=== PATIENT | female | born 2000 | race Caucasian/White ===

== ENCOUNTER 2019-03-19 09:26 | Emergency (ER) | payer BC ==
--- NOTE | 2019-03-19 10:02 | ED ---
Lower Extremity - HPI Summary HPI Summary: 18 year old female presents to the ED with a chief complaint of left knee pain, secondary to playing tennis 2 days ago. Patient does not remember a specific event that triggered the pain. She is able to bear weight and has been walking on this leg. No FHx. No PMHx. - History of Current Complaint Chief Complaint: EDExtremityLower Stated Complaint: LEFT KNEE INJURY Time Seen by Provider: 03/19/19 09:28 Hx Obtained From: Patient Mechanism Of Injury: Unknown - Patient was playing tennis. Unsure of YEIMI Onset of Pain: Post Accident Onset/Duration: Days Severity Initially: Moderate Severity Currently: Moderate Pain Intensity: 6 Pain Scale Used: 0-10 Numeric Timing: Constant, Lasting Days Location: Is Discrete @ - Left knee Character Of Pain: Aching Associated Signs And Symptoms: Positive: Knee Pain Aggravating Factor(s): Standing, Ambulation, Movement Able to Bear Weight: Yes - Allergies/Home Medications Allergies/Adverse Reactions: Allergies Allergy/AdvReac Type Severity Reaction Status Date / Time No Known Allergies Allergy Verified 03/19/19 09:32 Home Medications: Home Medications Norethindr/Eth Estradiol(Nf) [Lo Loestrin Fe (NF)] 1 tab PO DAILY 03/19/19 [ History Confirmed 03/19/19] PMH/Surg Hx/FS Hx/Imm Hx Previously Healthy: Yes Sensory History: Denies: Hx Legally Blind, Hx Deafness - Surgical History Surgical History: None Infectious Disease History: No Infectious Disease History: Denies: Traveled Outside the [place] in Last 30 Days - Family History Known Family History: Positive: None, Non-Contributory - Social History Alcohol Use: Occasionally Hx Substance Use: No Substance Use Type: Reports: None Hx Tobacco Use: No Review of Systems Negative: Fever Positive: Arthralgia - L knee All Other Systems Reviewed And Are Negative: Yes Physical Exam - Summary Physical Exam Summary: General: Well appearing, no distress HEENT: PERRL Cardiovascular: Skin is well perfused Pulmonary: No respiratory distress, no tachypnea Abdomen: Non-distended Skin: Warm, pink, dry MSK: LLE: no deformity effusions, soft tissue swelling or discoloration, no crepitus palpated, compartments soft and compressible SILT 2+ DP, brisk cap refill x 5 FROM of joints without pain Hip: no ttp, no pain with log roll Knee: no ttp, able to SLR, FROM without pain, no lig laxity, tenderness with anterior drawer test but no instability. Ankle: no ttp, FROM without pain, no instability Toes: no ttp, FROM without pain Psych: Normal affect Neuro: A&Ox3 Triage Information Reviewed: Yes Vital Signs On Initial Exam: Initial Vitals Temp Pulse Resp BP Pulse Ox 98.2 F 65 14 118/73 99 03/19/19 09:28 03/19/19 09:28 03/19/19 09:28 03/19/19 09:28 03/19/19 09:28 Vital Signs Reviewed: Yes Procedures - Sedation Patient Received Moderate/Deep Sedation with Procedure: No Diagnostics - Vital Signs Vital Signs Temp Pulse Resp BP Pulse Ox 03/19/19 09:28 98.2 F 65 14 118/73 99 - Laboratory Lab Statement: Any lab studies that have been ordered have been reviewed, and results considered in the medical decision making process. Lower Extremity Course/Dx - Course Course Of Treatment: 18 y/o F p/w L knee pain after playing tennis. - PE w/o ligamentous instability. Tenderness with anterior drawer test. - Imaging deferred as patient is [place] knee rule negative, able to ambulate. - advised to rest/motrin/brace as needed, f/u w orthopedics if worsening or not improving - Diagnoses Provider Diagnoses: Left knee pain Discharge ED - Sign-Out/Discharge Documenting (check all that apply): Patient Departure - discharge home - Discharge Plan Condition: Stable Disposition: HOME Patient Education Materials: Knee Pain (ED) Referrals: [facility] - Carter GILLIS [Primary Care Provider] - Additional Instructions: You were seen in the emergency department for knee pain. Please follow-up with orthopedics for pain rated in one week for further workup. Please take Motrin at home. You can try a knee band or brace for support. Please follow up with your primary care doctor in next 2-3 days and return to emergency department for worsening or concerning symptoms. It was a pleasure taking care of you today. - Billing Disposition and Condition Condition: STABLE Disposition: Home - Attestation Statements Document Initiated by Scribe: Yes Documenting Scribe: Michele Bobby Provider For Whom Scribe is Documenting (Include Credential): Jerome Lui MD Scribe Attestation: IMichele, scribed for Jerome Lui MD on 03/19/19 at 1121. Scribe Documentation Reviewed: Yes Provider Attestation: The documentation as recorded by the scribeMichele accurately reflects the service I personally performed and the decisions made by Jerome reardon MD Status of Scribe Document: Viewed
[2019-03-19 10:28] VITALS: BP 99/79
== END 2019-03-19 10:27 | disposition home or self-care (01) ==
LOC: ED 09:26
DX: M25.562 Pain in left knee (principal)
CPT/HCPCS: 99282